=== PATIENT | female | born 1955 | race Caucasian/White ===

== ENCOUNTER → 2020-05-31 | Outpatient (CLI) | payer MEDICARE, OTHER ==
--- NOTE | 2020-06-01 16:48 | RAD ---
DATE: 05/31/2020 1:08 PM EXAM: MAMMO YUE SCREENING BILATERAL HISTORY: Screening COMPARISON: 03/23/2016, 04/11/2017 and 04/21/2019 Bilateral CC and MLO views of the breasts were performed. Bilateral breast tomosynthesis was performed in CC and MLO projections. This study was interpreted with the benefit of Computerized Aided Detection (CAD). FINDINGS: Breast Density: SCATTERED The breast parenchyma shows scattered fibroglandular densities. Breast parenchyma level B No suspicious masses, microcalcifications or architectural distortion is present to suggest malignancy in either breast. The visualized axillae are unremarkable. IMPRESSION: No mammographic evidence of malignancy. BI-RADS CATEGORY: 1 NEGATIVE RECOMMENDED FOLLOW-UP: 12M 12 MONTH FOLLOW-UP Annual screening mammography is recommended, unless clinically indicated sooner based on symptoms or change in physical exam. PQRS compliance statement: Patient information was entered into a reminder system with a target due date for the next mammogram. Mammography is a sensitive method for finding small breast cancers, but it does not detect them all and is not a substitute for careful clinical examination. A negative mammogram does not negate a clinically suspicious finding and should not result in delay in biopsying a clinically suspicious abnormality. "Our facility is accredited by the [employer] Mammography Program."
== END | disposition home or self-care (01) ==
LOC: MAMMO 12:58
PROVIDERS: ATTEND Family Medicine
DX: Z12.31 Encounter for screening mammogram for malignant neoplasm of breast (principal)
CPT/HCPCS: 77063; 77067

== ENCOUNTER → 2020-08-08 | Outpatient (CLI) | payer MEDICARE, OTHER ==
[~2020-08-08] MED LIST: METF10007 PO; METH5TAB85 PO; PANT40TA6 PO; SEMA1PEN SQ; SIMV40TA18 PO; SOLI10TA2 PO
== END ==
LOC: LAB 09:33
PROVIDERS: ATTEND Registered Nurse
DX: Z01.812 Encounter for preprocedural laboratory examination (principal); Z20.828 Contact with and (suspected) exposure to other viral communicable diseases
CPT/HCPCS: U0003-CS

== ENCOUNTER → 2020-08-11 | Day surgery (SDC) | payer MEDICARE, OTHER ==
[~2020-08-11] MED LIST changes: +IPRATRPIUM/ALBUTEROL 0.5/2.5MG 3 ML NEBU. NEB PRN; +IV RINGERS SOLUTION,LACTATED 1,000 ML IV SCH; +LIDOCAINE 2% PF 5 ML VIAL. ONE; +MIDAZOLAM HCL PF 2 MG/2 ML VIAL. IV ONE; +ONDANSETRON PF 4 MG/2 ML VIAL. IV PRN; +PROPOFOL 10,000 MCG/ML (20ML) VIAL IV ONE
[2020-08-11 08:11] VITALS: BP 128/64
== END | disposition home or self-care (01) ==
LOC: SURG 06:30
PROVIDERS: ATTEND Internal Medicine Gastroenterology
DX: K31.89 Other diseases of stomach and duodenum (principal); K21.9 Gastro-esophageal reflux disease without esophagitis; K22.70 Barrett's esophagus without dysplasia; E11.9 Type 2 diabetes mellitus without complications; E03.9 Hypothyroidism, unspecified; Z98.890 Other specified postprocedural states; Z79.899 Other long term (current) drug therapy; Z79.84 Long term (current) use of oral hypoglycemic drugs; Z88.8 Allergy status to other drugs, medicaments and biological substances
CPT/HCPCS: 43239; 82947; 88305; J2001; J2704; J7120

== ENCOUNTER → 2021-06-07 | Outpatient (CLI) | payer MEDICARE, OTHER ==
[2020-08-11 08:11] VITALS: BP 128/64
[~2021-06-07] MED LIST changes: -IPRATRPIUM/ALBUTEROL 0.5/2.5MG 3 ML NEBU. NEB PRN; -IV RINGERS SOLUTION,LACTATED 1,000 ML IV SCH; -LIDOCAINE 2% PF 5 ML VIAL. ONE; -MIDAZOLAM HCL PF 2 MG/2 ML VIAL. IV ONE; -ONDANSETRON PF 4 MG/2 ML VIAL. IV PRN; -PROPOFOL 10,000 MCG/ML (20ML) VIAL IV ONE
--- NOTE | 2021-06-07 11:48 | RAD ---
EXAM: DUAL ENERGY X-RAY ABSORPTIOMETRY (DEXA). HISTORY: Postmenopausal screening. FINDINGS: The lowest measured T-score is -3.0 in the lumbar spine, based on a bone mineral density of -3.0 g/cm^2. Refer to the worksheets for full detail. In comparison with the baseline study of 07/25/2004, average bone mineral density at the lumbar spine has changed -14.0%, while the average density at the hips has changed -3.3%. IMPRESSION: Osteoporosis. Bone mineral density yields a T-score of -2.5 or less. Fracture risk is high. FRAX was not calculated. METHODOLOGY: Dual energy x-ray absorptiometry was performed to measure bone mineral density. The foll owing analysis is based on the 2019 Official Positions of the International Society for Clinical Dens itometry: Measurements of the hips and the average of L1-L4 are preferred. When the spine and/or hip cannot be feasibly measured or interpreted, or in the setting of hyperparathyroidism, distal radial bone minera l density may be measured. The lumbar spine T-score is based on the average bone mineral density of L1-L4. In the setting of art ifact or anatomic abnormality, some lumbar levels may be excluded, and the remaining levels used for calculation. A single lumbar level is not used for diagnosis, and if only a single level is available for assessment, another anatomic site will be used to assign a diagnosis. The hip T-score is based on the bone mineral density measurement of the femoral neck or total proxima l femur of either side, whichever is lowest. Bilateral mean values are not used for diagnosis. The forearm T-score is derived from 33% of the distal radius of the nondominant forearm. For postmenopausal and perimenopausal women, and men age 50 or older, of all ethnic groups, T-scores are calculated through comparison of the current measurement with the NHANES III database standard fo r females aged 20-29 years. The lowest T-score of the evaluated anatomic sites is used to a ssign a diagnosis based on the World Health Organization densitometric classification. In premenopausal females and males younger than age 50, a Z-score is calculated based on population s pecific reference data for patient sex and self-reported ethnicity. Electronically signed by: Brenda Mercado MD (06/07/2021 11:46 AM) [id number]
--- NOTE | 2021-06-08 12:00 | RAD ---
EXAM: BILATERAL DIGITAL SCREENING MAMMOGRAPHY. HISTORY: Routine mammographic screening. TECHNIQUE: Bilateral full field digital images were obtained in CC and MLO projections. Computer-aide d detection was applied. COMPARISON: 05/31/2020, 04/21/2025. COMPOSITION: B. There are scattered areas of fibroglandular density. FINDINGS: A new ill-defined mass at the right 1:00 position measures 18 x 14 mm. There are no clear a ssociated calcifications. Calcific densities in both axillae are consistent with deodorant. Calcifications inferomedially on th e left are more coarse and appear benign. There is no suspicious finding on the left. BI-RADS CATEGORY 0: Incomplete--Needs Additional Imaging Evaluation. RECOMMENDATION: 1. New 18 mm mass at the right 1:00 position concerning for malignancy. Ultrasound is recommended for further evaluation. Electronically signed by: Brenda Mercado MD (06/08/2021 11:58 AM) [id number]
== END ==
LOC: MAMMO 11:01
PROVIDERS: ATTEND Family Medicine
DX: Z12.31 Encounter for screening mammogram for malignant neoplasm of breast (principal); M81.0 Age-related osteoporosis without current pathological fracture; M85.80 Other specified disorders of bone density and structure, unspecified site
CPT/HCPCS: 77067; 77080

== ENCOUNTER → 2021-06-16 | Outpatient (CLI) | payer MEDICARE, OTHER ==
[2020-08-11 08:11] VITALS: BP 128/64
--- NOTE | 2021-06-16 13:19 | RAD ---
Exam performed: Right breast ultrasound. HISTORY: Follow-up from a prior screening mammogram. DATE OF SERVICE: 06/16/2021. Comparison made to a screening bilateral mammogram from 06/07/2021. FINDINGS: Targeted sonographic evaluation of the right breast demonstrates a irregular hypoechoic spiculated 2. 1 x 1.7 x 1.2 cm mass with angular margins and internal vascularity at 1:00 position, 3 cm from the n ipple corresponding to the mammographic abnormality an area of palpable concern.. There are occasiona l dilated ducts in the retroareolar region. No abnormal right axillary lymph nodes are seen. IMPRESSION: Suspicious hypoechoic irregular 2.4 x 1.7 x 1.2 cm mass in the right breast at 1:00 position, 3 cm fr om the nipple. Ultrasound-guided biopsy of this mass is recommended. Findings were conveyed to the patient by certified cytotechnologist. BI-RADS Category 5: Highly suggestive of malignancy. "Our facility is accredited by the [employer] Mammography Program." Electronically signed by: Aracelis Bundy MD (06/16/2021 1:16 PM) [id number]
== END ==
LOC: US 12:34
PROVIDERS: ATTEND Family Medicine
DX: N63.12 Unspecified lump in the right breast, upper inner quadrant (principal)
CPT/HCPCS: 76642

== ENCOUNTER → 2022-01-23 | Outpatient (CLI) | payer MEDICARE, OTHER ==
[2020-08-11 08:11] VITALS: BP 128/64
[~2022-01-23] MED LIST changes: +IOHEXOL 300 MG/ML 75 ML VIAL. IV ONE
--- NOTE | 2022-01-23 10:02 | RAD ---
EXAM: Chest CT with intravenous contrast. HISTORY: Breast cancer. TECHNIQUE: Computed tomographic images of the chest were obtained following the administration of int ravenous contrast. Multiplanar reformatting was performed. *One or more of the following individualized dose reduction techniques were utilized for this examina tion: 1. Automated exposure control. 2. Adjustment of the mA and/or kV according to patient size. 3. Use of iterative reconstruction technique. COMPARISON: None. FINDINGS: there is increased density within the superior right breast and right breast skin thickenin g due to a lumpectomy and radiation therapy changes. There is a suspected basilar device or adjacent surgical clips within the lumpectomy bed. There are right axillary clips with surrounding scarring du e to prior axillary lymph node dissection. There is a left chest wall port catheter in expected posit ion. The heart is normal in size. There are nonspecific mediastinal and hilar lymph nodes. For reference p urposes, there is a precarinal lymph node measuring 1.2 cm. These lymph nodes are not pathologically enlarged. There is no pneumothorax or pleural effusion. There is mild biapical predominant emphysema. There is bilateral posterior dependent and right greater than left basilar atelectasis. There is no suspicious pulmonary nodule. There is hepatic steatosis. There is no suspicious hepatic lesion on the [id number]. There is no s uspicious adrenal gland lesion. The spleen is normal in size. The visualized portions of the pancreas and kidneys are unremarkable. There is suspected incidental small bowel malrotation. There are degen erative changes throughout the visualized spine. There is no acute or suspicious osseous finding. IMPRESSION: 1. Findings consistent with right breast lumpectomy and axillary lymph node dissection. There are pos toperative changes within the lumpectomy bed and right breast skin thickening likely due to radiation therapy. 2. No acute thoracic finding or convincing evidence of thoracic metastatic disease. 3. Hepatic steatosis. Electronically signed by: Serina Lopez MD (01/23/2022 9:12 AM) [facility]
== END ==
LOC: CT 08:11
PROVIDERS: ATTEND Radiology Radiation Oncology
DX: C50.111 Malignant neoplasm of central portion of right female breast (principal); K76.0 Fatty (change of) liver, not elsewhere classified; R23.4 Changes in skin texture
CPT/HCPCS: 71260; Q9967

== ENCOUNTER 2022-03-21 16:49 | Emergency (ER) | payer MEDICARE, OTHER ==
[~2022-03-21] VITALS: Ht 167.6 cm; Wt 72.7 kg
[~2022-03-21 16:49] MED LIST changes: -IOHEXOL 300 MG/ML 75 ML VIAL. IV ONE
[2022-03-21 17:14] VITALS: BP 156/95
[2022-03-21] MEDS ORDERED: KETOROLAC 60 MG/2 ML VIAL. IM ONE (17:30)
[2022-03-21] MEDS ORDERED: ORPHENADRINE CITRATE 60 MG/2 ML VIAL. IM ONE (17:30)
--- NOTE | 2022-03-21 17:35 | PHYS DOC ---
Past History Past Medical History: No Pertinent History Additional Past Medical Histor: Neuropathy from Chemo Past Surgical History: Other Additional Past Surgical Histo: lumpectomy Smoking: Less than 1pk/day Alcohol Use: None Drug Use: None General Adult EDM: Chief Complaint: BACK INJURY HPI: HPI: Patient is a 66-year-old female who presents to the emergency department for bilateral low back pain that occurred at 1430 today. Patient reports that she slipped on a wet floor at [employer] and fell onto her bottom. She rates her pain 6 out of 10. She denies hitting her head, loss of consciousness, blood thinner use, treatment prior to arrival. Patient denies any saddle anesthesias or loss of bowel or bladder. She is able to bear weight and ambulate with steady gait. 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 Review of Systems: Review of Systems: HENT: See HPI GI: See HPI : See HPI Musculoskeletal: See HPI Neurologic: See HPI Current Medications: Current Meds: Current Medications Medications (Trade) Dose Ordered Sig/Annette Start Time Stop Time Status Last Admin Dose Admin Ketorolac Tromethamine (Toradol Im) 60 mg 1X ONCE 03/21/22 17:30 03/21/22 17:31 UNV Orphenadrine Citrate (Norflex) 60 mg 1X ONCE 03/21/22 17:30 03/21/22 17:31 UNV Allergies: Allergies: Allergies Coded Allergies Type Severity Reaction Last Updated Verified cephalexin Allergy Unknown hives 08/02/20 Yes Physical Exam: PE: Constitutional: Well developed, well nourished, no acute distress, non-toxic appearance. [] HENT: Normocephalic, atraumatic, bilateral external ears normal, oropharynx moist, no oral exudates, nose normal. [] Eyes: PERRL, EOMI, conjunctiva normal, no discharge. [] Neck: Normal range of motion, no bony spinal tenderness, no step-offs or deformities, supple, no stridor. [] Cardiovascular:Heart rate regular rhythm, no murmur [] Lungs & Thorax: Bilateral breath sounds clear to auscultation [] Abdomen: Bowel sounds normal, soft, no tenderness, no masses, no pulsatile masses. [] Skin: Warm, dry, no erythema, no rash. [] Back: No bony spinal tenderness, no deformities, normal range of motion no CVA tenderness, no wounds or ecchymosis noted to low back. [] Extremities: No tenderness, no cyanosis, no clubbing, ROM intact, no edema. [] Neurologic: Alert and oriented X 3, normal motor function, normal sensory function, no focal deficits noted. [] Psychologic: Affect normal, judgement normal, mood normal. [] Current Patient Data: Vital Signs: Vital Signs Date Time Temp Pulse Resp B/P (MAP) Pulse Ox O2 Delivery O2 Flow Rate FiO2 03/21/22 17:14 98.8 82 16 156/95 (115) 100 Room Air EKG: EKG: [] Radiology/Procedures: Radiology/Procedures: []PROCEDURE: CT LUMBAR SPINE WO CONTRAST EXAMINATION: CT LUMBAR SPINE WO CLINICAL HISTORY: Back pain following fall. TECHNIQUE: Serial axial images obtained through the L-spine without intravenous contrast with sagittal and coronal planar reconstructions. CT Dose Reduction Employed: One or more of the following individualized dose reduction techniques were utilized for this examination: 1. Automated exposure control 2. Adjustment of the mA and/or kV according to patient size 3. Use of iterative reconstruction technique. COMPARISON: CT chest 01/23/2022 FINDINGS: Alignment: Normal anatomic alignment. Osseous Structures: Mild compression deformity in the L1 superior endplate, not present on prior study and therefore likely acute given history of trauma. No spondylolisthesis. Degenerative Changes: Mild anterior endplate osteophytosis with relatively well- preserved disc spaces. Mild facet arthropathy. No evidence of high-grade osseous spinal or neural foraminal stenosis. Paraspinal Soft Tissues: Paraspinal soft tissues unremarkable. Aortoiliac atherosclerotic calcification and mild ectasia of the infrarenal abdominal aorta. IMPRESSION: Findings suspicious for mild acute compression fracture L1 superior endplate as described. Electronically signed by: Gordon North DO (03/21/2022 6:10 PM) [facility] DICTATED AND SIGNED BY: GORDON NORTH DO DATE: 03/21/221802 CC: KAVON FLOWERS APRN; ISIDORO VILLARREAL ~ Heart Score: C/O Chest Pain: N/A Risk Factors: Risk Factors: DM, Current or recent (<one month) smoker, HTN, HLP, family history of CAD, obesity. Risk Scores: Score 0 - 3: 2.5% MACE over next 6 weeks - Discharge Home Score 4 - 6: 20.3% MACE over next 6 weeks - Admit for Clinical Observation Score 7 - 10: 72.7% MACE over next 6 weeks - Early Invasive Strategies Course & Med Decision Making: Course & Med Decision Making Pertinent Labs and Imaging studies reviewed. (See chart for details) Patient presents to the emergency department for low back pain after falling onto her bottom while sitting on the floor. Imaging was performed of the lumbar spine which showed mild compression fracture to L1. Patient treated with anti- inflammatory medications and a muscle relaxer. She has no cauda equina symptoms. Patient experiencing a stable fracture. She will be discharged home with pain medication she is advised to follow-up with neurosurgery. I discussed with patient all findings and diagnostic testing as well as the need to follow- up with PCP for further evaluation and treatment or return to the ER if any new or worsening symptoms. Strict return precautions were also discussed at length. Patient voiced understanding and agreement with the plan. Patient is hemodyna mically stable at the time of disposition. Dragon Disclaimer: Sukumar Disclaimer: This electronic medical record was generated, in whole or in part, using a voice recognition dictation system. Departure Departure: Impression: Primary Impression: Lumbar compression fracture Qualified Codes: S32.010A - Wedge compression fracture of first lumbar vertebra, initial encounter for closed fracture Disposition: 01 HOME / SELF CARE / HOMELESS Condition: GOOD Referrals: ISIDORO VILLARREAL (PCP) Patient Instructions: Lumbar Fracture Additional Instructions: You are seen in the emergency department following a back injury. You are noted to have a mild compression fracture of your L1, please see CT report. You are being discharged home with pain medication. This medication is hydrocodone and Tylenol and a combination tablet. This medication may cause sedation so do not take any need to be alert, driving a vehicle or with alcohol. You will need to follow-up with the neurosurgeon regarding your CT report. You can contact Dr. Rose at [phone], please call him tomorrow. Return to the emergency department if you develop worsening of your pain, loss of bowel or bladder, numbness or tingling in your groin or down your legs, inability to bear weight or walk or any new or worsening concerns. Scripts Hydrocodone Bit/Acetaminophen (HYDROCODONE-APAP 5-325 ) 1 Each Tablet 1 TAB PO PRN Q6HRS PRN for PAIN for 2 Days, #8 TAB 0 Refills Prov: KAVON FLOWERS APRN 03/21/22 KAVON FLOWERS APRN March 21, 2022 17:35
--- NOTE | 2022-03-21 18:12 | RAD ---
EXAMINATION: CT LUMBAR SPINE WO CLINICAL HISTORY: Back pain following fall. TECHNIQUE: Serial axial images obtained through the L-spine without intravenous contrast with sagittal and coron al planar reconstructions. CT Dose Reduction Employed: One or more of the following individualized dose reduction techniques wer e utilized for this examination: 1. Automated exposure control 2. Adjustment of the mA and/or kV ac cording to patient size 3. Use of iterative reconstruction technique. COMPARISON: CT chest 01/23/2022 FINDINGS: Alignment: Normal anatomic alignment. Osseous Structures: Mild compression deformity in the L1 superior endplate, not present on prior stud y and therefore likely acute given history of trauma. No spondylolisthesis. Degenerative Changes: Mild anterior endplate osteophytosis with relatively well-preserved disc spaces . Mild facet arthropathy. No evidence of high-grade osseous spinal or neural foraminal stenosis. Paraspinal Soft Tissues: Paraspinal soft tissues unremarkable. Aortoiliac atherosclerotic calcificati on and mild ectasia of the infrarenal abdominal aorta. IMPRESSION: Findings suspicious for mild acute compression fracture L1 superior endplate as described. Electronically signed by: Gordon Starr DO (03/21/2022 6:10 PM) [facility]
[2022-03-21] MEDS ORDERED: HYDROcodone/APAP 5/325MG 1 TAB TABLET PO ONE (18:15)
[2022-03-21] MEDS ORDERED: HYDR-2155 PO (18:22)
== END 2022-03-21 19:02 | disposition home or self-care (01) ==
LOC: ER 16:49
DX: S32.010A Wedge compression fracture of first lumbar vertebra, initial encounter for closed fracture (principal); F17.200 Nicotine dependence, unspecified, uncomplicated; Z88.1 Allergy status to other antibiotic agents; W01.0XXA Fall on same level from slipping, tripping and stumbling without subsequent striking against object, initial encounter; Y93.89 Activity, other specified; Y92.89 Other specified places as the place of occurrence of the external cause; Y99.8 Other external cause status
CPT/HCPCS: 72131; 96372; 99284; J1885; J2360; 99283